=== PATIENT | female | born 1985 | race Caucasian/White ===

== ENCOUNTER 2020-06-01 14:14 | Emergency (ER) | payer OTHER ==
[~2020-06-01] VITALS: Ht 165.1 cm; Wt 81.7 kg
[2020-06-01] MEDS ORDERED: ZOFRAN ODT4 MG PO (17:28)
[2020-06-01] MEDS ORDERED: IBUPROFEN 600600 M1 PO (17:28)
[2020-06-01 17:48] VITALS: BP 126/72
== END 2020-06-01 17:49 | disposition home or self-care (01) ==
LOC: ER 14:14
DX: B27.90 Infectious mononucleosis, unspecified without complication (principal); Z88.1 Allergy status to other antibiotic agents